=== PATIENT | male | born 1980 | race Caucasian/White ===

== ENCOUNTER → 2021-10-28 | Outpatient (CLI) | payer OTHER ==
[~2021-10-28] VITALS: Ht 193 cm; Wt 108.9 kg
[~2021-10-28] MED LIST: OMEP20CA16 PO; SINCALIDE 2.2 MCG in IV NORMAL SALINE 50ML 30 ML IV ONE
--- NOTE | 2021-10-28 10:04 | RAD ---
US ABDOMEN COMPLETE History: Reason: EPIGASTRIC PAIN/RUQ PAIN / Spl. Instructions: / History: Comparison: None. Technique: Sonographic examination of the abdomen was performed and multiple grayscale and color Dopp ler static images were obtained. Findings: Liver demonstrates increased echogenicity. The liver measures 17.5 cm. Portal flow is patent. No cholelithiasis, gallbladder wall thickening or pericholecystic fluid. Common bile duct measures 4 mm in diameter. Visualized pancreas not well seen due to overlying structures. The right kidney measures 12.7 x 4.9 x 5.2 cm. No hydronephrosis. The left kidney measures 12.5 x 5.7 x 5.7 cm. No hydronephrosis. The spleen measures 13.8 cm. Visualized portions of the abdominal aorta and IVC are normal. IMPRESSION: 1. Mild splenomegaly. 2. Increased hepatic echotexture, may indicate steatosis. Electronically signed by: Helder Castellano DO (10/28/2021 10:02 AM) [id number]
--- NOTE | 2021-10-28 14:31 | RAD ---
Hepatobiliary scan with gallbladder ejection fraction calculation 10/28/2021 Clinical History: Abdominal pain for 6 months. Technique: After the intravenous administration of 5.3 mCi of Technetium 99m Choletec, imaging of the right upper quadrant of the abdomen was performed using the gamma camera for 60 minutes. 2.2 mcg of CCK was infused intravenously and continued imaging of the right upper quadrant of the abdomen was pe rformed for 30 minutes. A gallbladder ejection fraction was calculated. Findings: Comparison is made to an ultrasound of the right upper quadrant abdomen performed earlier t he same day. Normal perfusion, uptake and excretion of the radionuclide by the liver is seen. There is no evidence of cystic or common bile duct obstruction. The gallbladder is within normal limits in position and configuration. During the infusion of CCK emp fletcher of the gallbladder is seen on the static images. The gallbladder ejection fraction is 82% which is within normal limits. Impression: Negative study. Electronically signed by: Larry Christopher MD (10/28/2021 2:29 PM) [id number]
== END ==
LOC: US 07:37
PROVIDERS: ATTEND Internal Medicine Gastroenterology
DX: R16.1 Splenomegaly, not elsewhere classified (principal); R10.13 Epigastric pain
CPT/HCPCS: 76700; 78227; A9537; J2805